=== PATIENT | male | born 1935 | race Caucasian/White ===

== ENCOUNTER → 2016-11-25 | Outpatient (REF) | payer MEDICARE, BC ==
[2016-11-25 12:58] LABS: BASO % 0.5 % (0.0-1.0); EOS # 0.3 K/mm3 (0.0-0.50); EOS % 5.5 % (0.0-3.0); LARGE UNSTAINED CELL # 0.1 K/mm3 (0.0-0.4); LARGE UNSTAINED CELL % 1.9 % (0.0-4.0); LYMPH # 1.1 K/mm3 (1.5-4.5); LYMPH % 17.7 % (24.0-44.0); MEAN CORPUSCULAR HEMOGLOBIN 32.8 pg (27.0-33.0); MEAN CORPUSCULAR HGB CONC 33.8 g/dl (32.0-36.5); MEAN CORPUSCULAR VOLUME 97.1 fl (80.0-96.0); MONO # 0.5 K/mm3 (0.0-0.8); MONO % 8.4 % (0.0-5.0); NEUTROPHILS # 3.6 K/mm3 (1.8-7.7); NEUTROPHILS % 65.9 % (36.0-66.0); PLATELET COUNT, AUTOMATED 151 k/mm3 (150-450); RED CELL DISTRIBUTION WIDTH 12.9 % (11.5-14.5); WHITE BLOOD COUNT 5.4 K/mm3 (4.0-10.0)
[2016-11-25 13:28] LABS: ALBUMIN 3.6 GM/DL (3.2-5.2); ALBUMIN/GLOBULIN RATIO 1.29 (1.00-1.93); BILIRUBIN,TOTAL 0.8 MG/DL (0.2-1.0); CALCIUM LEVEL 8.5 MG/DL (8.8-10.2); CREATININE FOR GFR 1.35 MG/DL (0.70-1.30); GLOMERULAR FILTRATION RATE 54.1 (>35); MAGNESIUM LEVEL 2.2 MG/DL (1.8-2.4); POTASSIUM SERUM 4.6 MEQ/L (3.5-5.1); TOTAL PROTEIN 6.4 GM/DL (6.4-8.2)
== END ==
LOC: M LABDRAW1 11:36
PROVIDERS: ATTEND Family Medicine
DX: E55.9 Vitamin D deficiency, unspecified (principal); E78.5 Hyperlipidemia, unspecified; I10 Essential (primary) hypertension; R73.01 Impaired fasting glucose

== ENCOUNTER → 2016-12-11 | Outpatient (CLI) | payer MEDICARE, BC | LOC: M LAB 13:05 | PROVIDERS: ATTEND Urology | DX: Z85.46 Personal history of malignant neoplasm of prostate (principal); R35.1 Nocturia; N52.31 Erectile dysfunction following radical prostatectomy ==

== ENCOUNTER → 2017-11-24 | Outpatient (REF) | payer MEDICARE, BC ==
[2017-11-24 12:45] LABS: BASO % 0.5 % (0.0-1.0); EOS # 0.3 10^3/uL (0.0-0.50); HEMATOCRIT 44.8 % (42.0-52.0); HEMOGLOBIN 15.4 g/dl (13.5-17.5); IMMATURE GRANULOCYTE % 0.3 % (0-3.0); LYMPH # 1.5 10^3/uL (1.5-4.5); MEAN CORPUSCULAR HEMOGLOBIN 32.1 pg (27.0-33.0); MEAN CORPUSCULAR HGB CONC 34.4 g/dl (32.0-36.5); MEAN CORPUSCULAR VOLUME 93.3 fl (80.0-96.0); MONO # 0.8 10^3/uL (0.0-0.8); MONO % 12.7 % (0.0-5.0); NEUTROPHILS # 3.8 10^3/uL (1.8-7.7); NEUTROPHILS % 58.5 % (36.0-66.0); PLATELET COUNT, AUTOMATED 176 10^3/uL (150-450); RED CELL DISTRIBUTION WIDTH 12.8 % (11.5-14.5); WHITE BLOOD COUNT 6.4 10^3/uL (4.0-10.0)
[2017-11-24 12:50] LABS: HEMATOCRIT 44.8 % (42.0-52.0)
[2017-11-24 13:35] LABS: ALBUMIN 3.8 GM/DL (3.2-5.2); ALBUMIN/GLOBULIN RATIO 1.23 (1.00-1.93); ALKALINE PHOSPHATASE 63 U/L (45-117); ALT/SGPT 26 U/L (12-78); ANION GAP 10 MEQ/L (8-16); AST/SGOT 22 U/L (7-37); BILIRUBIN,TOTAL 0.7 MG/DL (0.2-1.0); BLOOD UREA NITROGEN 20 MG/DL (7-18); CALCIUM LEVEL 8.6 MG/DL (8.8-10.2); CARBON DIOXIDE LEVEL 26 MEQ/L (21-32); CHLORIDE LEVEL 98 MEQ/L (98-107); CHOLESTEROL LEVEL 134 MG/DL (<200); CREATININE FOR GFR 1.34 MG/DL (0.70-1.30); FREE T4 1.03 NG/DL (0.76-1.46); GLOMERULAR FILTRATION RATE 54.5 (>35); GLUCOSE, FASTING 87 MG/DL (70-100); HDL CHOLESTEROL 40 MG/DL (>40); LDL CHOLESTEROL 69.4 MG/DL (<100); NON-HDL-C 94 MG/DL; POTASSIUM SERUM 4.5 MEQ/L (3.5-5.1); SODIUM LEVEL 134 MEQ/L (136-145); TOTAL PROTEIN 6.9 GM/DL (6.4-8.2); TRIGLYCERIDES LEVEL 123 MG/DL (<150)
[2017-11-24 15:24] LABS: APPEARANCE, URINE CLEAR (CLEAR); BACTERIA, URINE AUTO NEGATIVE (NEGATIVE); BILIRUBIN, URINE AUTO NEGATIVE (NEGATIVE); BLOOD, URINE BLOOD NEGATIVE (NEGATIVE); COLOR, URINE YELLOW (YELLOW); GLUCOSE, URINE (UA) AUTO NEGATIVE (NEGATIVE); KETONE, URINE AUTO NEGATIVE (NEGATIVE); LEUKOCYTE ESTERASE, URINE AUTO NEGATIVE (NEGATIVE); NITRITE, URINE AUTO NEGATIVE (NEGATIVE); PROTEIN, URINE AUTO NEGATIVE (NEGATIVE); RBC, URINE AUTO 0 /HPF (0-3); SQUAMOUS EPITHELIAL CELL UR AU 0 /HPF (0-6); UROBILINOGEN, URINE AUTO 0.2 mg/dL (0.0-2.0); WBC, URINE AUTO 0 /HPF (0-3)
[2017-11-24 15:33] LABS: CREATININE, URINE 61.2 MG/DL; MAU/CREAT RATIO 22.8 MCG/MG (0.0-30.0)
[2017-11-24 17:34] LABS: ESTIMATED AVERAGE GLUCOSE 128 MG/DL (60-110); HEMOGLOBIN A1c 6.1 %
[2017-11-25 11:21] LABS: PRETREATED FOLATE FOR RBCFOL 14.2 NG/ML; RBC FOLATE 665.6 NG/ML (280-791)
[2017-11-27 12:24] LABS: ALBUMIN 4.15 GM/DL (3.29-5.55); ALBUMIN % 60.2 % (55.8-66.1); ALPHA-1-GLOBULIN % 4.6 % (2.9-4.9); ALPHA-1-GLOBULINS 0.32 GM/DL (0.17-0.41); ALPHA-2-GLOBULINS 0.75 GM/DL (0.42-0.99); ALPHA-2-GLOBULINS % 10.9 % (7.1-11.8); BETA-1-GLOBULINS 0.48 GM/DL (0.28-0.60); BETA-1-GLOBULINS % 6.9 % (4.7-7.2); BETA-2-GLOBULINS 0.39 GM/DL (0.19-0.55); BETA-2-GLOBULINS % 5.6 % (3.2-6.5); GAMMA GLOBULIN % 11.8 % (11.1-18.8); GAMMA GLOBULINS 0.81 GM/DL (0.65-1.58)
== END ==
LOC: M LABDRWAD 12:15
DX: E78.5 Hyperlipidemia, unspecified (principal); R73.01 Impaired fasting glucose; N18.3 Chronic kidney disease, stage 3 (moderate)
CPT/HCPCS: 84165

== ENCOUNTER → 2017-12-16 | Outpatient (CLI) | payer MEDICARE, BC ==
[2017-12-16 22:03] LABS: PROSTATIC SPECIFIC AG MONITOR < 0.01 NG/ML (< 4.0)
== END ==
LOC: M ADAMS 10:15
DX: Z85.46 Personal history of malignant neoplasm of prostate (principal)
CPT/HCPCS: 84153

== ENCOUNTER 2017-12-18 18:35 | Inpatient (IN) | payer MEDICARE, BC ==
[2017-12-18 21:00] LABS: BASO % 0.5 % (0.0-1.0); EOS # 0.3 10^3/uL (0.0-0.50); EOS % 4.2 % (0.0-3.0); HEMATOCRIT 43.5 % (42.0-52.0); HEMOGLOBIN 14.9 g/dl (13.5-17.5); IMMATURE GRANULOCYTE % 0.7 % (0-3.0); LYMPH # 1.6 10^3/uL (1.5-4.5); LYMPH % 21.2 % (24.0-44.0); MEAN CORPUSCULAR HEMOGLOBIN 31.5 pg (27.0-33.0); MEAN CORPUSCULAR HGB CONC 34.3 g/dl (32.0-36.5); MONO # 0.9 10^3/uL (0.0-0.8); MONO % 12.1 % (0.0-5.0); NEUTROPHILS # 4.5 10^3/uL (1.8-7.7); NEUTROPHILS % 61.3 % (36.0-66.0); PLATELET COUNT, AUTOMATED 189 10^3/uL (150-450); RED BLOOD COUNT 4.73 10^6/uL (4.30-6.10); RED CELL DISTRIBUTION WIDTH 12.2 % (11.5-14.5); WHITE BLOOD COUNT 7.4 10^3/uL (4.0-10.0)
[2017-12-18 21:12] LABS: INR 1.02; PROTHROMBIN TIME 13.5 SECONDS (12.1-14.4)
[2017-12-18 21:13] LABS: PARTIAL THROMBOPLASTIN TIME 26.7 SECONDS (25.4-37.6)
[2017-12-18 22:46] LABS: BLOOD UREA NITROGEN 18 MG/DL (7-18); CREATININE FOR GFR 1.35 MG/DL (0.70-1.30); GLUCOSE, FASTING 99 MG/DL (70-100); POTASSIUM SERUM 4.9 MEQ/L (3.5-5.1); SODIUM LEVEL 131 MEQ/L (136-145)
[2017-12-18 22:47] LABS: ANION GAP 9 MEQ/L (8-16); CALCIUM LEVEL 8.6 MG/DL (8.8-10.2); CARBON DIOXIDE LEVEL 26 MEQ/L (21-32); CHLORIDE LEVEL 96 MEQ/L (98-107); CK-MB VALUE MASS 2.1 NG/ML (<3.6); CPK CREATINE PHOSPHOKINASE 102 U/L (39-308); MB/CK RELATIVE INDEX 2.05 (< OR =4); TROPONIN I 0.02 NG/ML (< 0.10)
[2017-12-19] MEDS: LATANOPROST 0.005% OPHTH SOLN 2.5 ML OD (01:05)
[2017-12-19 01:52] LABS: CHOLESTEROL LEVEL 117 MG/DL (<200); CHOLESTEROL RISK RATIO 3.078 (<5); HDL CHOLESTEROL 38 MG/DL (>40); LDL CHOLESTEROL 58.2 MG/DL (<100); NON-HDL-C 79 MG/DL; TRIGLYCERIDES LEVEL 104 MG/DL (<150)
[2017-12-19 01:57] LABS: ESTIMATED AVERAGE GLUCOSE 151 MG/DL (60-110); HEMOGLOBIN A1c 6.9 %
[2017-12-19] MEDS: NS 750 ML IV (03:04)
[2017-12-19] MEDS: METOPROLOL SUCC (TopROL XL) 50MG **XL** TAB PO ×2 (04:22→22:13)
[2017-12-19] MEDS: HEPARIN SOD (PORCINE) 5000 UNITS/ML VIAL SC ×3 (06:25→22:09)
[2017-12-19] MEDS: ROSUVASTATIN 10 MG TAB (CRESTOR) PO (08:46)
[2017-12-19] MEDS: MULTIVITAMINS/MINERALS THERAP 1 TAB PO (08:46)
[2017-12-19] MEDS: ASPIRIN 81 MG ENTERIC TAB PO (08:46)
[2017-12-19] MEDS: PANTOPRAZOLE 20 MG TAB PO (08:47)
[2017-12-19] MEDS: LOSARTAN 25 MG TAB PO (08:49)
[2017-12-19 10:02] LABS: ANION GAP 7 MEQ/L (8-16); BLOOD UREA NITROGEN 15 MG/DL (7-18); CALCIUM LEVEL 8.5 MG/DL (8.8-10.2); CARBON DIOXIDE LEVEL 28 MEQ/L (21-32); CHLORIDE LEVEL 96 MEQ/L (98-107); CREATININE FOR GFR 1.25 MG/DL (0.70-1.30); GLUCOSE, FASTING 108 MG/DL (70-100); POTASSIUM SERUM 4.7 MEQ/L (3.5-5.1); SODIUM LEVEL 131 MEQ/L (136-145)
[2017-12-19] MEDS: PNEUMOCOCCAL VACCINE 0.5ML SYRINGE(90732) PNEUMOVAX 23 IM (14:20)
[2017-12-19] MEDS: OCUVITE 1 TAB PO (22:09)
[2017-12-20] MEDS ORDERED: GLUCAGON FOR INJ 1 MG VIAL (J1610) SC (04:30)
[2017-12-20] MEDS ORDERED: GLUCOSE 4 GM CHEW TABLET PO (04:30)
[2017-12-20] MEDS ORDERED: DEXTROSE 50% 50 ML SYRINGE IV (04:30)
[2017-12-20] MEDS: HEPARIN SOD (PORCINE) 5000 UNITS/ML VIAL SC ×3 (05:36→21:05)
[2017-12-20 06:32] LABS: HEMATOCRIT 40.8 % (42.0-52.0); HEMOGLOBIN 14.3 g/dl (13.5-17.5); MEAN CORPUSCULAR HEMOGLOBIN 31.4 pg (27.0-33.0); MEAN CORPUSCULAR VOLUME 89.7 fl (80.0-96.0); PLATELET COUNT, AUTOMATED 176 10^3/uL (150-450); RED BLOOD COUNT 4.55 10^6/uL (4.30-6.10); RED CELL DISTRIBUTION WIDTH 12.1 % (11.5-14.5); WHITE BLOOD COUNT 7.5 10^3/uL (4.0-10.0)
[2017-12-20 06:50] LABS: ANION GAP 9 MEQ/L (8-16); BLOOD UREA NITROGEN 20 MG/DL (7-18); CALCIUM LEVEL 8.5 MG/DL (8.8-10.2); CARBON DIOXIDE LEVEL 24 MEQ/L (21-32); CHLORIDE LEVEL 99 MEQ/L (98-107); GLOMERULAR FILTRATION RATE 56.4 (>35); GLUCOSE, FASTING 107 MG/DL (70-100); POTASSIUM SERUM 4.8 MEQ/L (3.5-5.1); SODIUM LEVEL 132 MEQ/L (136-145)
[2017-12-20] MEDS: HumaLOG INSULIN (NovoLOG) PER UNIT SC ×2 (07:30→07:40)
[2017-12-20] MEDS: LOSARTAN 25 MG TAB PO (07:41)
[2017-12-20] MEDS: ASPIRIN 81 MG ENTERIC TAB PO (07:41)
[2017-12-20] MEDS: OMEPRAZOLE 20 MG CAP PO (07:41)
[2017-12-20] MEDS: MULTIVITAMINS/MINERALS THERAP 1 TAB PO (07:41)
[2017-12-20] MEDS: ROSUVASTATIN 10 MG TAB (CRESTOR) PO (07:41)
[2017-12-20] MEDS: CLOPIDOGREL 75 MG TAB PO (07:41)
[2017-12-20] MEDS ORDERED: HumaLOG INSULIN (NovoLOG) PER UNIT SC (21:00)
[2017-12-20] MEDS: METOPROLOL SUCC (TopROL XL) 50MG **XL** TAB PO (21:04)
[2017-12-20] MEDS: OCUVITE 1 TAB PO (21:04)
[2017-12-20] MEDS: LATANOPROST 0.005% OPHTH SOLN 2.5 ML OD (21:05)
[2017-12-21] MEDS: HEPARIN SOD (PORCINE) 5000 UNITS/ML VIAL SC ×2 (05:08→14:22)
[2017-12-21 06:24] LABS: HEMATOCRIT 41.5 % (42.0-52.0); HEMOGLOBIN 14.3 g/dl (13.5-17.5); MEAN CORPUSCULAR HEMOGLOBIN 31.4 pg (27.0-33.0); MEAN CORPUSCULAR HGB CONC 34.5 g/dl (32.0-36.5); PLATELET COUNT, AUTOMATED 174 10^3/uL (150-450); RED BLOOD COUNT 4.56 10^6/uL (4.30-6.10); RED CELL DISTRIBUTION WIDTH 12.3 % (11.5-14.5); WHITE BLOOD COUNT 7.4 10^3/uL (4.0-10.0)
[2017-12-21 06:43] LABS: ANION GAP 9 MEQ/L (8-16); BLOOD UREA NITROGEN 20 MG/DL (7-18); CALCIUM LEVEL 8.7 MG/DL (8.8-10.2); CARBON DIOXIDE LEVEL 24 MEQ/L (21-32); CHLORIDE LEVEL 100 MEQ/L (98-107); CREATININE FOR GFR 1.31 MG/DL (0.70-1.30); GLOMERULAR FILTRATION RATE 55.9 (>35); GLUCOSE, FASTING 98 MG/DL (70-100); POTASSIUM SERUM 4.5 MEQ/L (3.5-5.1); SODIUM LEVEL 133 MEQ/L (136-145)
[2017-12-21] MEDS: CLOPIDOGREL 75 MG TAB PO (08:29)
[2017-12-21] MEDS: MULTIVITAMINS/MINERALS THERAP 1 TAB PO (08:29)
[2017-12-21] MEDS: ROSUVASTATIN 10 MG TAB (CRESTOR) PO (08:29)
[2017-12-21] MEDS: OMEPRAZOLE 20 MG CAP PO (08:29)
[2017-12-21] MEDS: LOSARTAN 25 MG TAB PO (08:30)
[2017-12-21] MEDS: ASPIRIN 81 MG ENTERIC TAB PO (08:30)
[2017-12-21] MEDS: ACETAMINOPHEN TAB 650MG DOSE (2X325MG) PO (08:30)
[2017-12-21] MEDS ORDERED: FIORICET TAB PO (11:00)
[2017-12-21 11:48] LABS: C REACTIVE PROTEIN QUANTITATIV 0.58 MG/DL (0.00-0.30)
[2017-12-21 12:15] LABS: ERYTHROCYTE SEDIMENTATION RATE 5 mm/hr (0-20)
[2017-12-21] MEDS ORDERED: NORTRIPTYLINE 10 MG CAP PO (21:00)
== END 2017-12-21 18:09 | disposition home or self-care (01) | DRG 66 ==
LOC: M ED INP 12-19 01:51 → M ED 18:35 → M MSPAV 12-19 11:28
DX: I63.9 Cerebral infarction, unspecified (principal); E78.5 Hyperlipidemia, unspecified; I25.10 Atherosclerotic heart disease of native coronary artery without angina pectoris; Z95.1 Presence of aortocoronary bypass graft; N18.9 Chronic kidney disease, unspecified; I12.9 Hypertensive chronic kidney disease with stage 1 through stage 4 chronic kidney disease, or unspecified chronic kidney disease; Z79.899 Other long term (current) drug therapy; Z79.82 Long term (current) use of aspirin; Z87.891 Personal history of nicotine dependence; H40.9 Unspecified glaucoma; K21.9 Gastro-esophageal reflux disease without esophagitis; E11.9 Type 2 diabetes mellitus without complications; E66.9 Obesity, unspecified

== ENCOUNTER → 2018-01-26 | Outpatient (REF) | payer MEDICARE, BC ==
[2018-01-26 13:09] LABS: BASO % 0.6 % (0.0-1.0); EOS # 0.3 10^3/uL (0.0-0.50); EOS % 4.9 % (0.0-3.0); HEMATOCRIT 46.4 % (42.0-52.0); HEMOGLOBIN 15.6 g/dl (13.5-17.5); IMMATURE GRANULOCYTE % 0.4 % (0-3.0); LYMPH # 1.3 10^3/uL (1.5-4.5); LYMPH % 18.1 % (24.0-44.0); MEAN CORPUSCULAR HEMOGLOBIN 32.1 pg (27.0-33.0); MEAN CORPUSCULAR HGB CONC 33.6 g/dl (32.0-36.5); MEAN CORPUSCULAR VOLUME 95.5 fl (80.0-96.0); MONO # 0.9 10^3/uL (0.0-0.8); MONO % 12.3 % (0.0-5.0); NEUTROPHILS # 4.4 10^3/uL (1.8-7.7); NEUTROPHILS % 63.7 % (36.0-66.0); PLATELET COUNT, AUTOMATED 174 10^3/uL (150-450); RED BLOOD COUNT 4.86 10^6/uL (4.30-6.10); RED CELL DISTRIBUTION WIDTH 12.9 % (11.5-14.5); RETIC HEMOGLOBIN EQUIVALENT 37.8 pg (24-36); RETICULOCYTE # 80.2 10^9/L (17-77); RETICULOCYTE % 1.7 % (0.5-1.5); WHITE BLOOD COUNT 6.9 10^3/uL (4.0-10.0)
[2018-01-26 13:15] LABS: ALBUMIN 3.7 GM/DL (3.2-5.2); ALBUMIN/GLOBULIN RATIO 1.28 (1.00-1.93); ALKALINE PHOSPHATASE 62 U/L (45-117); ALT/SGPT 30 U/L (12-78); ANION GAP 5 MEQ/L (8-16); AST/SGOT 21 U/L (7-37); BILIRUBIN,TOTAL 0.8 MG/DL (0.2-1.0); BLOOD UREA NITROGEN 20 MG/DL (7-18); C REACTIVE PROTEIN QUANTITATIV < 0.30 MG/DL (0.00-0.30); CALCIUM LEVEL 9.3 MG/DL (8.8-10.2); CARBON DIOXIDE LEVEL 30 MEQ/L (21-32); CHLORIDE LEVEL 101 MEQ/L (98-107); CHOLESTEROL LEVEL 90 MG/DL (<200); CPK CREATINE PHOSPHOKINASE 130 U/L (39-308); CREATININE FOR GFR 1.48 MG/DL (0.70-1.30); GLOMERULAR FILTRATION RATE 48.6 (>35); GLUCOSE, FASTING 111 MG/DL (70-100); HDL CHOLESTEROL 40 MG/DL (>40); LDL CHOLESTEROL 32.4 MG/DL (<100); NON-HDL-C 50 MG/DL; SODIUM LEVEL 136 MEQ/L (136-145); TOTAL PROTEIN 6.6 GM/DL (6.4-8.2); TRIGLYCERIDES LEVEL 88 MG/DL (<150)
[2018-01-26 13:25] LABS: POTASSIUM SERUM 5.3 MEQ/L (3.5-5.1)
[2018-01-27 15:19] LABS: INSULIN LEVEL 20.4 uIU/mL (2.6-24.9)
== END ==
LOC: M SFHCADAM 07:47
DX: N18.3 Chronic kidney disease, stage 3 (moderate) (principal); E78.5 Hyperlipidemia, unspecified; R73.01 Impaired fasting glucose; I12.9 Hypertensive chronic kidney disease with stage 1 through stage 4 chronic kidney disease, or unspecified chronic kidney disease
CPT/HCPCS: 82550

== ENCOUNTER → 2018-11-17 | Outpatient (REF) | payer MEDICARE, BC ==
[~2018-11-17] MED LIST: ASPI81TA26 PO; ASPI81TAEC PO; CLOP75TA2 PO; CRES10TA PO; FISH1000 PO; FISH120012 PO; FLAX10008 PO; FLAX1200 PO; LATA0.0013; LATA0.0013 OD; LOSA25TA14 PO; METO1TAB7 PO; MULTCAP PO; OCUVTAB PO; OMEP20CA3 PO; PANT20TA2 PO; SIMV40TA2 PO; TURM500C PO; TURM500C3 PO; VITMTA PO; ZOCO40TA PO
[2018-11-17 13:50] LABS: BASO % 0.3 % (0.0-1.0); EOS # 0.2 10^3/uL (0.0-0.50); EOS % 1.5 % (0.0-3.0); HEMATOCRIT 46.2 % (42.0-52.0); HEMOGLOBIN 15.7 g/dl (13.5-17.5); LYMPH # 1.2 10^3/uL (1.5-4.5); LYMPH % 11.3 % (24.0-44.0); MEAN CORPUSCULAR HEMOGLOBIN 31.5 pg (27.0-33.0); MEAN CORPUSCULAR VOLUME 92.6 fl (80.0-96.0); MONO # 1.1 10^3/uL (0.0-0.8); MONO % 10.3 % (0.0-5.0); NEUTROPHILS # 8.3 10^3/uL (1.8-7.7); NEUTROPHILS % 76.1 % (36.0-66.0); PLATELET COUNT, AUTOMATED 223 10^3/uL (150-450); RED BLOOD COUNT 4.99 10^6/uL (4.30-6.10); WHITE BLOOD COUNT 10.9 10^3/uL (4.0-10.0)
[2018-11-17 14:13] LABS: ALBUMIN 3.3 GM/DL (3.2-5.2); C REACTIVE PROTEIN QUANTITATIV 11.8 MG/DL (0.00-0.30); CREATININE FOR GFR 1.42 MG/DL (0.70-1.30); GLOMERULAR FILTRATION RATE 50.8 (>35); TOTAL PROTEIN 6.9 GM/DL (6.4-8.2)
== END ==
LOC: M SFHCPLAZ 12:56
PROVIDERS: ATTEND Family Medicine
DX: I10 Essential (primary) hypertension (principal); R10.9 Unspecified abdominal pain
CPT/HCPCS: 36415; 80053; 83605; 83690; 85025; 86140; G0463

== ENCOUNTER → 2018-11-23 | Outpatient (CLI) | payer MEDICARE, BC ==
[~2018-11-23] MED LIST changes: +GASTROGRAFIN SOLUTION 30ML (Q9963) As Ordered ONE
--- NOTE | 2018-11-23 19:09 | REP ---
CT of the abdomen and pelvis without IV but with oral contrast for left side abdominal pain: There are no comparison CT studies. Within the visualized lower lung lopez. There is a 4.3 cm mass-like density in the right lower lobe and a small right pleural effusion. There is a 2.4 cm cyst in the left lobe of the liver. The unenhanced hepatic parenchyma is otherwise homogeneous. There are small gallbladder calculi. The gallbladder is otherwise unremarkable. There is no biliary duct dilatation. The pancreas and spleen are normal size and unremarkable. The adrenals are unremarkable. The unenhanced kidneys are unremarkable. There is an abdominal aortic aneurysm measuring up to 3.0 cm in diameter. There is no periaortic hematoma. There are numerous diverticuli in the descending colon and sigmoid colon. There is pericolonic fat stranding at the junction of the descending colon and sigmoid colon compatible with diverticulitis. There is no abscess. There is no pneumoperitoneum. There is no free fluid. Pelvis: The the patient has had prostate surgery. There are surgical clips in the pelvis bilaterally. The bladder is unremarkable. There is a lucent lesion in the L5 vertebral body has eroded through the superior endplate. There is a blastic appearance of the vertebral body adjacent to the lucency. There is a lucency superiorly in the T11 vertebral body adjacent to the superior endplate. There is lucent lesions may represent metastases. There is advanced degenerative disc disease at L2-3, L3-4 and L4-5 characterized by disc vacuum phenomenon. There is degenerative disc disease from T11 - L2 with large anterior bridging osteophytes. There are blastic lesions in the posterior elements of L3 - 04-05. Impression: Diverticulosis. Focal diverticulitis at the junction of the descending colon and sigmoid colon without abscess or pneumoperitoneum. Prostate surgery. The lucent metastases in the T11 and L5 vertebral bodies. Blastic metastases in the posterior elements of L3 - 04-05. Surgical clips in the pelvis inferiorly. Abdominal aortic aneurysm. The Electronically Signed by Natan Forbes MD 11/23/2018 07:01 P
== END ==
LOC: M RAD 15:12
PROVIDERS: ATTEND Family Medicine
DX: R10.9 Unspecified abdominal pain (principal); C79.51 Secondary malignant neoplasm of bone; K57.30 Diverticulosis of large intestine without perforation or abscess without bleeding; K57.32 Diverticulitis of large intestine without perforation or abscess without bleeding; I71.4 Abdominal aortic aneurysm, without rupture; J98.4 Other disorders of lung
CPT/HCPCS: 74176; Q9963

== ENCOUNTER → 2018-11-24 | Outpatient (REF) | payer MEDICARE, BC ==
[~2018-11-24] MED LIST changes: -GASTROGRAFIN SOLUTION 30ML (Q9963) As Ordered ONE
[2018-11-24 16:34] LABS: ALBUMIN 3.2 GM/DL (3.2-5.2); ALT/SGPT 30 U/L (12-78); BILIRUBIN,TOTAL 0.4 MG/DL (0.2-1.0); BLOOD UREA NITROGEN 22 MG/DL (7-18); CALCIUM LEVEL 8.8 MG/DL (8.8-10.2); CARBON DIOXIDE LEVEL 27 MEQ/L (21-32); CHLORIDE LEVEL 97 MEQ/L (98-107); CREATININE FOR GFR 1.44 MG/DL (0.70-1.30); GLUCOSE, FASTING 132 MG/DL (70-100); POTASSIUM SERUM 4.8 MEQ/L (3.5-5.1); PROSTATIC SPECIFIC AG MONITOR < 0.01 NG/ML (< 4.00); SODIUM LEVEL 130 MEQ/L (136-145); TOTAL PROTEIN 6.4 GM/DL (6.4-8.2)
== END ==
LOC: M SFHCPLAZ 14:21
PROVIDERS: ATTEND Nurse Practitioner Family
DX: R91.8 Other nonspecific abnormal finding of lung field (principal); C61 Malignant neoplasm of prostate

== ENCOUNTER → 2018-11-25 | Outpatient (CLI) | payer MEDICARE, BC ==
[~2018-11-25] MED LIST changes: +ISOVUE-370 76% 100ML VIAL (Q9967) As Ordered ONE
--- NOTE | 2018-11-25 09:55 | REP ---
CT BRAIN WITHOUT CONTRAST: HISTORY: Right lower lobe lung mass. Bone metastasis. Comparison MRI study December 18, 2017. CT FINDINGS: Digital preliminary expert witness radiograph is unremarkable. Bone window settings show an intact bony calvarium. There is no evidence of calvarial metastatic lesion. There is fairly heavy vascular calcification in the distal vertebral and distal carotid arteries bilaterally. The visualized paranasal sinuses are clear. No intraorbital abnormality is seen. There is moderate diffuse cerebral atrophy. There is an old right temporal occipital lobe infarct. This was acute at the time of the MRI study from December 18. There is no evidence of intracranial hemorrhage, mass, extra-axial fluid collection, or midline shift. IMPRESSION: Diffuse moderate atrophy. Vascular calcification. 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 No acute intracranial abnormality. Electronically Signed by New Moreno MD 11/25/2018 11:12 A
--- NOTE | 2018-11-25 09:58 | REP ---
SOFT TISSUE CT OF THE NECK WITH CONTRAST: HISTORY: Right lower lobe mass. CT CONTRAST DOSE: 100 mL of intravenous Isovue 370. SOFT TISSUE NECK CT FINDINGS: The parotid glands are normal and symmetric. The left submandibular gland has a normal appearance. The right submandibular gland is either absent or very atrophic. There is no evidence of cervical adenopathy in the suprahyoid or infrahyoid neck. Extensive vascular calcification is seen in the carotids. Tonsillar and peritonsillar soft tissues are unremarkable. Epiglottis and laryngeal and subglottic airway appear intact. The lung apices are unremarkable. No bony destructive lesion is appreciated. There are degenerative spondylosis changes in the cervical spine. IMPRESSION: No mass or adenopathy seen. Degenerative spondylosis changes in the cervical spine. Asymmetry of the submandibular glands with atrophy or absence on the right. Electronically Signed by New Moreno MD 11/25/2018 11:12 A
--- NOTE | 2018-11-25 10:20 | REP ---
CT CHEST WITH IV CONTRAST: TECHNIQUE: Axial contrast enhanced images from the thoracic inlet to the upper abdomen using 100 mL Isovue 370 intravenous contrast material with multiplanar reformations. There is a rounded mass-like consolidative opacity in the right lower lobe along the diaphragm 4.4 cm in diameter. Tiny calcified granuloma is seen in the left lower lobe. There are no other suspicious nodular opacities identified. There is a small right pleural effusion. There is no evidence of mediastinal, hilar or chest wall lymphadenopathy. There is mild cardiomegaly. There is calcification of the thoracic aorta with mild dilatation of the ascending thoracic aorta 4.5 cm. There is no pericardial effusion. There is a small hiatal hernia. There is a cyst in the left lobe of the liver which measures 2.5 cm in diameter. There is no adrenal nodule. Small gallstones are seen in the gallbladder. The visualized colon demonstrates diffuse diverticulosis. There are degenerative changes of the spine. There is mild compression deformity of the T6 of indeterminate age. T11 also demonstrates mild depression of the superior endplate with adjacent ill-defined lucency in the vertebral body. I cannot exclude an underlying metastatic lesion. IMPRESSION: Right lower lobe mass density 4.4 cm in diameter. Small right pleural effusion. No adenopathy in the chest. Mild compression of T6 of indeterminate age. Mild compression of T11 with depression of the superior endplate and adjacent ill-defined lucency in the superior vertebral body. Underlying metastatic lesion could not be excluded. Electronically Signed by Natan Hoskins MD 11/25/2018 04:40 P
== END ==
LOC: M RAD 08:42
PROVIDERS: ATTEND Nurse Practitioner Family
DX: C79.51 Secondary malignant neoplasm of bone (principal); R91.8 Other nonspecific abnormal finding of lung field; J90 Pleural effusion, not elsewhere classified; M47.892 Other spondylosis, cervical region
CPT/HCPCS: 70470; 70491; 71260; Q9967

== ENCOUNTER → 2018-11-26 | Outpatient (REF) | payer MEDICARE, BC ==
[~2018-11-26] MED LIST changes: -ISOVUE-370 76% 100ML VIAL (Q9967) As Ordered ONE; +OMEP1CAP73 PO; -OMEP20CA3 PO; -SIMV40TA2 PO; +SIMV40TA20 PO
[2018-11-26 19:23] LABS: ALBUMIN 3.3 GM/DL (3.2-5.2); BLOOD UREA NITROGEN 21 MG/DL (7-18); CARBON DIOXIDE LEVEL 27 MEQ/L (21-32); CHLORIDE LEVEL 98 MEQ/L (98-107); CREATININE FOR GFR 1.34 MG/DL (0.70-1.30); GLOMERULAR FILTRATION RATE 54.3 (>35); GLUCOSE, FASTING 156 MG/DL (70-100); PHOSPHORUS LEVEL 3.7 MG/DL (2.5-4.9); SODIUM LEVEL 134 MEQ/L (136-145); TOTAL PROTEIN 6.6 GM/DL (6.4-8.2)
[2018-11-26 19:36] LABS: INR 1.06; PROTHROMBIN TIME 13.5 SECONDS (11.8-14.0)
[2018-11-26 19:47] LABS: OSMOLALITY SERUM 284 MOSM/KG (280-301)
[2018-12-01 14:39] LABS: ALBUMIN 3.72 GM/DL (3.29-5.55); ALBUMIN % 56.4 % (55.8-66.1); ALPHA-1-GLOBULIN % 5.6 % (2.9-4.9); ALPHA-1-GLOBULINS 0.37 GM/DL (0.17-0.41); ALPHA-2-GLOBULINS 0.92 GM/DL (0.42-0.99); ALPHA-2-GLOBULINS % 13.9 % (7.1-11.8); BETA-1-GLOBULINS 0.43 GM/DL (0.28-0.60); BETA-1-GLOBULINS % 6.5 % (4.7-7.2); BETA-2-GLOBULINS 0.37 GM/DL (0.19-0.55); BETA-2-GLOBULINS % 5.6 % (3.2-6.5); GAMMA GLOBULINS 0.79 GM/DL (0.65-1.58)
== END ==
LOC: M SFHCPLAZ 13:35 → M SFHCADAM 13:39
PROVIDERS: ATTEND Family Medicine
DX: C79.9 Secondary malignant neoplasm of unspecified site (principal); I63.9 Cerebral infarction, unspecified
CPT/HCPCS: 80069; 83930; 83935; 84165; 85610; 85730; 86335; G0463

== ENCOUNTER → 2018-12-08 | Outpatient (CLI) | payer MEDICARE, BC ==
[~2018-12-08] MED LIST changes: +LIDOCAINE 1% MDV 20ML VIAL As Ordered ONE; -OMEP1CAP73 PO; +OMEP20CA4 PO; +SIMV40TA2 PO; -SIMV40TA20 PO
--- NOTE | 2018-12-08 14:31 | REP ---
CHEST, SINGLE VIEW: Single view of the chest is performed status post right lung biopsy. There is no pneumothorax. There are bibasilar atelectatic changes. Multiple sternal wires and mediastinal clips are present. IMPRESSION: No pneumothorax status post right lung biopsy. Electronically Signed by Natan Hoskins MD 12/08/2018 03:59 P
--- NOTE | 2018-12-08 16:06 | REP ---
CT-guided right lower lobe lung biopsy The procedure is performed by JANEE Moreira, under the direct supervision of Dr. Hoskins. The patient has a history of a rounded mass-like consolidative opacity in the right lower lobe along the diaphragm measuring 4.4 cm in diameter on a CT chest with contrast dated 11/25/2018. The risks and benefits of the procedure were explained to the patient and informed consent was obtained both orally and written. Directly prior to the start of the procedure, a formal timeout was done in the exam room. The right lower lobe lung nodule was localized using CT guidance. Skin was prepped and draped in the usual sterile fashion. 15 ml of 1% lidocaine was used as a local anesthetic. Using CT guidance a 19/20 gauge coaxial needle biopsy system was inserted and advanced into the nodule. 5 core biopsy samples were obtained and sent to the lab. CT images obtained directly after the biopsy show no evidence of pneumothorax. After the appropriate amount of monitored convalescence the patient was discharged from the department. Reviewed by JANEE Abel 12/08/2018 02:40 P Electronically Signed by Natan Hoskins MD 12/08/2018 03:58 P
== END ==
LOC: M RADPRO 08:53
PROVIDERS: ATTEND Family Medicine
DX: J98.4 Other disorders of lung (principal); R91.8 Other nonspecific abnormal finding of lung field

== ENCOUNTER → 2018-12-16 | Outpatient (REF) | payer MEDICARE, BC ==
[~2018-12-16] MED LIST changes: -LIDOCAINE 1% MDV 20ML VIAL As Ordered ONE
== END ==
LOC: M LABDRWAD 12:07
PROVIDERS: ATTEND Urology
DX: Z85.46 Personal history of malignant neoplasm of prostate (principal)

== ENCOUNTER → 2018-12-21 | Outpatient (CLI) | payer MEDICARE, BC ==
[~2018-12-21] MED LIST changes: +OMEP1CAP73 PO; -OMEP20CA4 PO; -SIMV40TA2 PO; +SIMV40TA20 PO
--- NOTE | 2018-12-21 11:55 | REP ---
WHOLE BODY RADIONUCLIDE BONE SCAN: HISTORY: Metastatic cancer. The patient has history of prostate malignancy recently elevated PSA levels. TECHNIQUE: 22.0 mCi of technetium 99m MDP is injected and standard whole body bone scan imaging was acquired. SCINTIGRAPHIC FINDINGS: There is a normal distribution of skeletal tracer with uptake in bilateral kidneys and in the urinary bladder. Minimal degenerative uptake is seen in the cervical and lumbar spine. There is minimal arthritic uptake in the medial compartment of each knee. There is no evidence to suggest skeletal metastatic disease. IMPRESSION: Negative whole body radionuclide bone scan. Electronically Signed by New Moreno MD 12/21/2018 12:04 P
== END ==
LOC: M RAD 07:38
PROVIDERS: ATTEND Family Medicine
DX: C79.9 Secondary malignant neoplasm of unspecified site (principal)
CPT/HCPCS: 78306; A9503

== ENCOUNTER → 2019-01-05 | Outpatient (REF) | payer MEDICARE, BC ==
[~2019-01-05] MED LIST changes: -OMEP1CAP73 PO; +OMEP20CA4 PO; +SIMV40TA2 PO; -SIMV40TA20 PO
[2019-01-05 13:14] LABS: ALBUMIN 3.5 GM/DL (3.2-5.2); CALCIUM LEVEL 9.5 MG/DL (8.8-10.2); CREATININE FOR GFR 1.4 MG/DL (0.70-1.30); GLOMERULAR FILTRATION RATE 51.7 (>35); PHOSPHORUS LEVEL 3.2 MG/DL (2.5-4.9); POTASSIUM SERUM 4.8 MEQ/L (3.5-5.1)
== END ==
LOC: M SFHCADAM 09:08
PROVIDERS: ATTEND Family Medicine
DX: I25.10 Atherosclerotic heart disease of native coronary artery without angina pectoris (principal)

== ENCOUNTER → 2019-01-06 | Outpatient (CLI) | payer MEDICARE, BC ==
[~2019-01-06] MED LIST changes: +PROHANCE 279.3MG/ML 5ML VIAL (A9576) As Ordered ONE
--- NOTE | 2019-01-06 12:11 | REP ---
MRI CERVICAL SPINE WITHOUT AND WITH CONTRAST: HISTORY: Abnormal uptake in the cervical spine on PET scan. Comparison PET/CT study December 30, 2018. History of prostate carcinoma. TECHNIQUE: Sagittal and axial T1- and T2-weighted scans are acquired in the usual fashion with and without fat saturation. Sequences include spin echo, turbo spin echo, and STIR imaging sequences. The gadolinium enhancement dose is 10 ml of intravenous ProHance. Half dose protocol. MRI FINDINGS: There is straightening of the normal cervical lordosis. Cortical and medullary bone signal intensity are normal. There is a small hemangioma in the T2 vertebral body. The cervical cord is normal in coarse, caliber and signal intensity on T1- and T2-weighted scans. No intraspinal mass or intramedullary mass lesion is seen. No abnormal contrast enhancement is observed. There is mild degenerative narrowing of the C5-6 and C6-7 disc spaces. There is no evidence of focal disc protrusion or spinal stenosis. There are facet osteoarthritic changes. Postcontrast images show no suspicious gadolinium enhancement. IMPRESSION: No acute abnormality. There is no evidence of intraspinal or intramedullary neoplasm. No evidence of skeletal metastatic disease is seen. Small hemangioma T2. Electronically Signed by New Moreno MD 01/06/2019 01:52 P
== END ==
LOC: M RAD 09:28
PROVIDERS: ATTEND Family Medicine
DX: R94.02 Abnormal brain scan (principal)
CPT/HCPCS: 72156; A9576

== ENCOUNTER 2020-12-29 05:11 | Inpatient (IN) | payer MEDICARE, BC ==
[~2020-12-29] VITALS: Ht 177.8 cm; Wt 98.6 kg
[~2020-12-29 05:11] MED LIST changes: +ASPI-569 PO; -ASPI81TAEC PO; +OMEP1CAP73 PO; -OMEP20CA4 PO; -PANT20TA2 PO; +PANT20TA6 PO; -PROHANCE 279.3MG/ML 5ML VIAL (A9576) As Ordered ONE; -SIMV40TA2 PO; +SIMV40TA20 PO
[2020-12-29] MEDS ORDERED: FURO20TA2 PO (05:24)
[2020-12-29 07:00] LABS: BASO % 0.5 % (0.0-1.0); EOS # 0.2 10^3/uL (0.0-0.5); EOS % 2.8 % (0.0-3.0); HEMATOCRIT 38.6 % (42.0-52.0); HEMOGLOBIN 12.6 g/dl (13.5-17.5); LYMPH # 0.9 10^3/uL (1.5-5.0); LYMPH % 14.2 % (24.0-44.0); MEAN CORPUSCULAR HGB CONC 32.6 g/dl (32.0-36.5); MEAN CORPUSCULAR VOLUME 88.9 fl (80.0-96.0); MONO # 0.8 10^3/uL (0.0-0.8); MONO % 12.6 % (2.0-8.0); NEUTROPHILS # 4.4 10^3/uL (1.5-8.5); NEUTROPHILS % 69.6 % (36.0-66.0); PLATELET COUNT, AUTOMATED 152 10^3/uL (150-450); RED BLOOD COUNT 4.34 10^6/uL (4.30-6.10); WHITE BLOOD COUNT 6.3 10^3/uL (4.0-10.0)
[2020-12-29] MEDS ORDERED: FUROSEMIDE 40MG/4ML VIAL (J1940) IV ONE (07:00)
[2020-12-29 07:32] LABS: ALBUMIN 3.3 GM/DL (3.2-5.2); ALT/SGPT 26 U/L (12-78); BILIRUBIN,DIRECT 0.8 MG/DL (0.0-0.2); BILIRUBIN,TOTAL 1.5 MG/DL (0.2-1.0); BLOOD UREA NITROGEN 24 MG/DL (7-18); CALCIUM LEVEL 9.1 MG/DL (8.8-10.2); CARBON DIOXIDE LEVEL 25 MEQ/L (21-32); CHLORIDE LEVEL 99 MEQ/L (98-107); CK-MB VALUE MASS 1.4 NG/ML (<3.6); CPK CREATINE PHOSPHOKINASE 56 U/L (39-308); CREATININE FOR GFR 1.35 MG/DL (0.70-1.30); GLOMERULAR FILTRATION RATE 53.6 (>35); GLUCOSE, FASTING 96 MG/DL (70-100); NT-PRO BNP 5734 PG/ML (<450); POTASSIUM SERUM 4.7 MEQ/L (3.5-5.1); SODIUM LEVEL 133 MEQ/L (136-145); TOTAL PROTEIN 6.5 GM/DL (6.4-8.2); TROPONIN I < 0.02 NG/ML (< 0.10)
[2020-12-29] MEDS ORDERED: CLOPIDOGREL 75 MG TAB PO SCH (09:00)
--- NOTE | 2020-12-29 09:10 | REPVR ---
PROCEDURE INFORMATION: Exam: XR Chest Exam date and time: 12/29/2020 6:55 AM Age: 85 years old Clinical indication: Cough; Additional info: Dyspnea/cough TECHNIQUE: Imaging protocol: XR of the chest. Views: 1 view. COMPARISON: CR POST BX CHEST 12/08/2018 1:43 PM FINDINGS: Lungs: Interstitial prominence. Asymmetric right basilar airspace/pleural disease obscuring the lateral right hemidiaphragm. Heart/Mediastinum: Cardiomegaly. Bones/joints: Median sternotomy. Osteopenia and degenerative change. IMPRESSION: Asymmetric right basilar airspace/pleural disease obscuring the lateral right hemidiaphragm. Electronically signed by: Ramsey Castillo On 12/29/2020 09:09:40 AM
[2020-12-29] MEDS ORDERED: D31000TA2 PO (11:12)
[2020-12-29] MEDS ORDERED: LOSA25TA14 PO (11:12)
[2020-12-29] MEDS ORDERED: PLAV1TAB2 PO (11:12)
[2020-12-29] MEDS ORDERED: XALA0.007 OD (11:12)
[2020-12-29] MEDS ORDERED: BLACK SEED OIL PO (11:12)
[2020-12-29] MEDS ORDERED: MOM 30ML SUSPENSION UDC PO PRN (11:30)
[2020-12-29] MEDS ORDERED: ACETAMINOPHEN TAB 650MG DOSE (2X325MG) PO PRN (11:30)
[2020-12-29] MEDS ORDERED: MAALOX 30 ML SUSP *UDC PO PRN (11:30)
[2020-12-29] MEDS: LOSARTAN 25 MG TAB PO SCH (13:11)
[2020-12-29] MEDS: MULTIVITAMINS/MINERALS THERAP 1 TAB PO SCH (13:11)
--- NOTE | 2020-12-29 13:29 | HPEPDOC ---
[facility] Medical History & Physical Date of Admission Dec 29, 2020 Date of Service: Dec 29, 2020 Primary Care Physician: Cory Hernandez M.D. Attending Physician: DALLIN CASTANEDA DO History and Physical CHIEF COMPLAINT: Shortness of breath on exertion HISTORY OF PRESENT ILLNESS: Patient is an 85-year-old male who presents today with a 2 to 3-week history of worsening shortness of breath on exertion. Patient states that over the past 2 to 3 weeks he has noticed worsening shor tness of breath especially when exert himself. He is not short of breath at rest. Patient states he used to be able to walk a few 1000 feet without any difficulty but has noticed he is only able to walk a few 100 feet now without having to stop to catch his breath. Patient states that he has been noticing he is unable to sleep the past few days as he is unable to lay flat. Patient usually sleeps with a few pillows but states over the past few days he has been having more difficulty catching his breath. Patient does occasionally wake up short of breath and over the past 2 days has been unable to wear his CPAP machine because of his shortness of breath. Patient denies any chest pain with his shortness of breath on exertion. Patient does have increased leg swelling. Patient states that he was given Lasix but he does not take it as consistently as he probably should. PAST MEDICAL HISTORY: 1. Congestive heart failure with unknown ejection fraction, last echo performed a few weeks ago in [place]. 2. Coronary artery disease. 3. Hypertension. 4. Chronic kidney disease 5. History of stroke PAST SURGICAL HISTORY: 1. CABG. 2. Bovine valve replacement. 3. Prostatectomy. 4. Hernia repairs SOCIAL HISTORY: Currently lives with his . Used to smoke about 35 years ago. Denies any alcohol or illicit drug use. 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 REVIEW OF SYSTEMS: General: Patient denies fevers HEENT: Patient denies headaches Cardiovascular: Patient denies chest pain Respiratory: Patient reports shortness of breath as above patient does report a cough but denies productive cough GI: Patient denies abdominal pain, nausea, vomiting, diarrhea : Patient denies increased frequency or pain with urination Extremities: Patient reports swelling of bilateral lower extremities s Neurological: Patient denies numbness or tingling in legs Skin: Patient denies any new rashes or lesions. Hematologic: Patient denies any easy bruising. Lymphatic: Patient denies any lumps lumps or bumps in neck, axilla, or groin HOME MEDICATIONS: Please see below. PHYSICAL EXAMINATION: VITAL SIGNS: Temperature 96.1, pulse 55, respiratory rate 18, blood pressure 162/77, pulse oximetry 99% on room air. General: Alert and oriented male patient who was resting comfortably in bed when I walked in the room. Patient not appear to be in any acute distress. HEENT: Normocephalic, atraumatic, moist mucous membranes. Neck: No lymphadenopathy or thyromegaly Cardiac: Regular rate and rhythm, no murmurs, normal S1, normal S2 Pulm: Crackles in the bases with dullness to percussion mostly on the right base. Clear to auscultation with tympany to percussion in the upper lung lopez bilaterally Abd: Nondistended, nontender to palpation, normal bowel sounds Ext: 1+ pitting edema to the level of the mid ramos Neuro: Patient was able to move all 4 extremities on command. Patient reported sensation to light touch in all 4 extremities Skin: Skin of the head, neck, abdomen, back, lower and upper extremities was exa mined no show any rash or suspicious lesion. LABORATORY DATA: See below. IMAGING: Chest x-ray performed on 12/29/2020 was reported to show asymmetric right basilar airspace/pleural disease obscuring the right lateral hemidiaphragm. MICROBIOLOGY: Please see below. ASSESSMENT: Patient is an 85-year-old male who presented to the hospital today with a 2 to 3-week history of worsening shortness of breath.. . PLAN: 1. Acute exacerbation of congestive heart failure with unknown ejection fraction. Patient recently had echocardiogram performed in [place] and the patient's says she has a copy of the report. We will try to track down the copy the report should know what this is heart failure produced or preserved ejection fraction. At this time, patient diuresed well with 40 mg of IV Lasix. We will give additional 40 mg of IV Lasix as the patient does appear to be overloaded. We will continue with diuresis to the patient's symptoms have resolved. Strict I's and O's. 2000 cc fluid restriction. 2 g sodium diet. We will continue to monitor the patient. 2. Shortness of breath on exertion. This is most likely due to the acute exacerbation of congestive heart failure. Continue with treatment as above. 3. Hypertension. Continue the patient's medications. 4. Coronary artery disease status post CABG. Continue with the patient's current medications. 5. Chronic kidney disease. We will continue to monitor the patient's creatinine as we diurese the patient. 6. DVT prophylaxis: Lovenox. 7. CODE STATUS: Patient would like to be a DO NOT RESUSCITATE/DO NOT INTUBATE. Patient believes he has filled out the paperwork in the past. When I discussed this with the patient, he understands that if his heart were to stop beating and he was to stop breathing and we did not perform CPR that he would naturally. This is the patient's wish. Patient also not like to be hooked up to a ventilator. Patient was made DO NOT RESUSCITATE/DO NOT INTUBATE. Disposition: Patient will be admitted to the medical surgical floor with telemetry. I expect the patient to be hospitalized for 24 to 48 hours. Vital Signs Vital Signs Date Time Temp Pulse Resp B/P (MAP) Pulse Ox O2 Delivery O2 Flow Rate FiO2 12/29/20 12:45 55 18 162/77 (105) 99 Room Air 12/29/20 05:11 96.1 Laboratory Data Labs 24H Laboratory Tests 2 12/29/20 06:40: Immature Granulocyte % (Auto) 0.3, Neutrophils (%) (Auto) 69.6H, Lymphocytes (%) (Auto) 14.2L, Monocytes (%) (Auto) 12.6H, Eosinophils (%) (Auto) 2.8, Basophils (%) (Auto) 0.5, Neutrophils # (Auto) 4.4, Lymphocytes # (Auto) 0.9L, Monocytes # (Auto) 0.8, Eosinophils # (Auto) 0.2, Basophils # (Auto) 0.0, Nucleated Red Blood Cells % (auto) 0.0, Anion Gap 9, Glomerular Filtration Rate 53.6, Calcium Level 9.1, Total Bilirubin 1.5H, Direct Bilirubin 0.8H, Aspartate Amino Transf (AST/SGOT) 23, Alanine Aminotransferase (ALT/SGPT) 26, Alkaline Phosphatase 177H, Total Creatine Kinase 56, Creatine Kinase MB 1.4, Creatine Kinase MB Relative Index 2.50, Troponin I < 0.02, CW-Typ-A-Type Natriuretic Peptide 5734H, Total Protein 6.5, Albumin 3.3, Albumin/Globulin Ratio 1.0, Thyroid Stimulating Hormone (TSH) 2.660 12/29/20 06:43: Lactic Acid Level 1.1 12/29/20 11:08: POC pH (Misc Panel) 7.436, POC Base Excess (Misc Panel) 0.0, POC Saturated Percent O2 (Misc) 97, POC pO2 (Misc Panel) 85.0, POC pCO2 (Misc Panel) 36.6, POC HCO3 (Misc Panel) 24.6, POC Total CO2 (Misc Panel) 26.0 CBC/BMP Laboratory Tests 12/29/20 06:40 Microbiology Microbiology 12/29/20 Blood Culture, Received Pending 12/29/20 Respiratory Virus Panel (PCR) (ZEINAB) - Final, Complete 12/29/20 Blood Culture, Received Pending Home Medications Scheduled Aspirin (Aspirin EC) 81 Mg Tabec, 81 MG PO Q2D ALTERNATE WITH PLAVIX Cholecalciferol (Vitamin D3) (Vitamin D3) 1,000 Unit Tablet, 1,000 UNITS PO QHS Clopidogrel Bisulfate (Plavix) 75 Mg Tablet, 75 MG PO Q2D ALTERNATE WITH ASPIRIN Furosemide (Furosemide) 20 Mg Tablet, 20 MG PO DAILY Latanoprost (Xalatan) 0.005% 2.5ML Drops, 1 DROP OD QHS Losartan Potassium (Losartan Potassium) 25 Mg Tablet, 25 MG PO DAILY Metoprolol Succinate (Metoprolol Succinate) 50 Mg Tab, 25 MG PO QHS Multivitamins (Thera M Plus Tablet) 1 Tab Tab, 1 TAB PO DAILY [Black Seed Oil] , 1 CAP PO DAILY Allergies Coded Allergies: metronidazole (Verified Allergy, Unknown, 12/29/20) A-FIB/CHADSVASC A-FIB History Current/History of A-Fib/PAF?: No DALLIN CASTANEDA DO Dec 29, 2020 13:29
[2020-12-29 14:09] VITALS: BP 139/63
[2020-12-29 14:15] VITALS: O2SAT 97
[2020-12-29] MEDS: FUROSEMIDE 40MG/4ML VIAL (J1940) IV SCH ×2 (15:40→22:35)
[2020-12-29] MEDS ORDERED: METOPROLOL SUCC *XL* 25MG TAB (TopROL *XL*) PO SCH (21:00)
[2020-12-29] MEDS ORDERED: VITAMIN D 1,000 INTERNATIONAL UNITS TABLET PO SCH (21:00)
[2020-12-29] MEDS ORDERED: LATANOPROST 0.005% OPHTH SOLN 2.5 ML OD SCH (21:00)
[2020-12-29 21:06] VITALS: BP 154/68
[2020-12-29 22:00] VITALS: BP 154/68
[2020-12-30] MEDS: FUROSEMIDE 40MG/4ML VIAL (J1940) IV SCH (06:22)
[2020-12-30 06:28] LABS: HEMATOCRIT 37.5 % (42.0-52.0); HEMOGLOBIN 12.5 g/dl (13.5-17.5); MEAN CORPUSCULAR HEMOGLOBIN 29.1 pg (27.0-33.0); MEAN CORPUSCULAR HGB CONC 33.3 g/dl (32.0-36.5); MEAN CORPUSCULAR VOLUME 87.4 fl (80.0-96.0); PLATELET COUNT, AUTOMATED 152 10^3/uL (150-450); RED BLOOD COUNT 4.29 10^6/uL (4.30-6.10); WHITE BLOOD COUNT 6.3 10^3/uL (4.0-10.0)
[2020-12-30 06:43] LABS: CALCIUM LEVEL 9.4 MG/DL (8.8-10.2); CREATININE FOR GFR 1.4 MG/DL (0.70-1.30); GLOMERULAR FILTRATION RATE 51.4 (>35); MAGNESIUM LEVEL 1.9 MG/DL (1.8-2.4); POTASSIUM SERUM 3.9 MEQ/L (3.5-5.1)
[2020-12-30] MEDS ORDERED: FUROSEMIDE 20 MG TAB PO SCH (09:00)
[2020-12-30] MEDS ORDERED: ENOXAPARIN 40MG/0.4ML SYRINGE (J1650 PER 10MG) SC SCH (09:00)
[2020-12-30] MEDS ORDERED: ASPIRIN 81MG ENTERIC TABLET PO SCH (09:00)
[2020-12-30] MEDS: LOSARTAN 25 MG TAB PO SCH (09:00)
[2020-12-30 09:45] VITALS: O2SAT 95
[2020-12-30] MEDS: MULTIVITAMINS/MINERALS THERAP 1 TAB PO SCH (10:01)
--- NOTE | 2020-12-30 16:06 | DS.PDOC ---
Discharge Summary General Date of Admission Dec 29, 2020 at 11:28 Date of Discharge 12/30/2020 Primary Care Physician: Cory Hernandez M.D. Attending Physician: DALLIN CASTANEDA DO Discharge Summary PROCEDURES PERFORMED DURING STAY: None. ADMITTING DIAGNOSES: 1. Acute exacerbation of congestive heart failure with unknown ejection fraction. 2. Shortness of breath on exertion 3. Hypertension 4. Coronary artery disease status post CABG 5. Chronic kidney disease stage III DISCHARGE DIAGNOSES: 1. Acute exacerbation of congestive heart failure with preserved ejection fraction. 2. Shortness of breath on exertion 3. Hypertension 4. Coronary artery disease status post CABG 5. Chronic kidney disease stage III COMPLICATIONS/CHIEF COMPLAINT: CHF. HISTORY OF PRESENT ILLNESS: Patient is an 85-year-old male who presented to the emergency department on 12/29/2020 with a 2 to 3-week history of worsening shortness of breath on exertion. Patient states over the past 2 to 3 weeks he has noticed worsening shortness of breath especially when he exerts himself. He is not short of breath at rest. Patient states he used to be able to walk a few 1000 feet without any difficulty but he has noticed he is only able to walk a few 100 feet now without having to stop to catch his breath. Patient denies any chest pain at this time. Patient's been unable to sleep the past few days as he is having difficulty breathing especially when laying flat. Patient states he will wake up with shortness of breath occasionally. Patient has been unable to wear his CPAP machine last 2 days due to his shortness of breath. Patient has been prescribed Lasix but has not been taking it recently due to an unknown reason. Patient was admitted for CHF exacerbation. HOSPITAL COURSE: Patient diuresed approximately about 5 L and was feeling much better on the morning of 12/30/2020. Patient was able to walk up and on the hallways and walk to the bathroom without having any shortness of breath. Patient was deemed ready for discharge on 12/30/2020. Patient was discharged in the hospital. I did make sure to advise the patient take his Lasix when he is at home to avoid him getting into the situation again. Patient agrees that he will continue to take his Lasix at home.. DISCHARGE MEDICATIONS: Please see below. ALLERGIES: Please see below. PHYSICAL EXAMINATION ON DISCHARGE: VITAL SIGNS: Please see below. General: Alert and oriented male patient who was sitting in the bed when I walked in. Patient was able to get up get dressed and walk to the bathroom and use bathroom without any difficulty. Patient not appear to be in any acute distress. HEENT: Normocephalic, atraumatic, moist mucous membranes. Neck: No lymphadenopathy or thyromegaly Cardiac: Regular rate and rhythm, no murmurs, normal S1, normal S2 Pulm: Fine bibasilar crackles, upper lung lopez clear to auscultation bilaterally Abd: Nondistended, nontender to palpation, normal bowel sounds Ext: No edema bilateral lower extremities LABORATORY DATA: Please see below. IMAGING: Chest x-ray performed on 12/29/2020 was reported to show asymmetric right basilar airspace/pleural disease obscuring the right lateral hemidiaphragm. PROGNOSIS: Good ACTIVITY: As tolerated. DIET: 2 g sodium DISCHARGE PLAN: Discharge home DISPOSITION: 01 Home, Self-Care. DISCHARGE INSTRUCTIONS: 1. Follow-up with primary care provider within 5 to 7 days at discharge. 2. Continue take your Lasix as prescribed 3. Return to the emergency department if symptoms worsen. ITEMS TO FOLLOWUP ON ON OUTPATIENT: 1. None. DISCHARGE CONDITION: Stable. TIME SPENT ON DISCHARGE: 25 minutes. Vital Signs/I&Os Vital Signs Date Time Temp Pulse Resp B/P (MAP) Pulse Ox O2 Delivery O2 Flow Rate FiO2 12/30/20 09:45 95 Room Air 12/29/20 22:00 97.8 57 18 154/68 (96) I&O- Last 24 Hours up to 6 AM 12/30/20 06:00 Intake Total 520 ml Output Total 4650 ml Balance -4130 ml Laboratory Data Labs 24H Laboratory Tests 2 12/30/20 06:07: Nucleated Red Blood Cells % (auto) 0.0, Anion Gap 8, Glomerular Filtration Rate 51.4, Calcium Level 9.4, Magnesium Level 1.9 CBC/BMP Laboratory Tests 12/30/20 06:07 Microbiology Microbiology 12/29/20 Blood Culture - Preliminary, Resulted No growth after 24 hours . All specim... 12/29/20 Respiratory Virus Panel (PCR) (ZEINAB) - Final, Complete 12/29/20 Blood Culture - Preliminary, Resulted No growth after 24 hours . All specim... Discharge Medications Scheduled Aspirin (Aspirin EC) 81 Mg Tabec, 81 MG PO Q2D, (Reported) ALTERNATE WITH PLAVIX Cholecalciferol (Vitamin D3) (Vitamin D3) 1,000 Unit Tablet, 1,000 UNITS PO QHS, (Reported) Clopidogrel Bisulfate (Plavix) 75 Mg Tablet, 75 MG PO Q2D, (Reported) ALTERNATE WITH ASPIRIN Furosemide (Furosemide) 20 Mg Tablet, 20 MG PO DAILY, (Reported) Latanoprost (Xalatan) 0.005% 2.5ML Drops, 1 DROP OD QHS, (Reported) Losartan Potassium (Losartan Potassium) 25 Mg Tablet, 25 MG PO DAILY, (Reported) Metoprolol Succinate (Metoprolol Succinate) 50 Mg Tab, 25 MG PO QHS, (Reported) Multivitamins (Thera M Plus Tablet) 1 Tab Tab, 1 TAB PO DAILY, (Reported) [Black Seed Oil] , 1 CAP PO DAILY, (Reported) Allergies Coded Allergies: metronidazole (Verified Allergy, Unknown, 12/29/20) DALLIN CASTANEDA DO Dec 30, 2020 16:05
--- NOTE | 2020-12-30 21:15 | ECGEPIP ---
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
== END 2020-12-30 11:43 | disposition home or self-care (01) | DRG 293 ==
LOC: M ED 05:11 → M ED INP 11:28 → ENRESERV 13:35 → M MSPAV 14:14
PROVIDERS: ADMIT Family Medicine; ATTEND Family Medicine
DX: I13.0 Hypertensive heart and chronic kidney disease with heart failure and stage 1 through stage 4 chronic kidney disease, or unspecified chronic kidney disease (principal); I50.9 Heart failure, unspecified; N18.30 Chronic kidney disease, stage 3 unspecified; I25.10 Atherosclerotic heart disease of native coronary artery without angina pectoris; Z79.899 Other long term (current) drug therapy; Z79.82 Long term (current) use of aspirin; Z88.8 Allergy status to other drugs, medicaments and biological substances; Z86.73 Personal history of transient ischemic attack (TIA), and cerebral infarction without residual deficits; Z66 Do not resuscitate

== ENCOUNTER → 2021-01-04 | Outpatient (CLI) | payer MEDICARE, BC ==
[~2021-01-04] MED LIST changes: +BLACK SEED OIL PO; +D31000TA2 PO; +FURO20TA2 PO; +PLAV1TAB2 PO; +XALA0.007 OD
[2021-01-04 11:32] LABS: CHOLESTEROL RISK RATIO 3.956 (<5)
== END ==
LOC: M WUC 09:12
PROVIDERS: ATTEND Psychiatry & Neurology Neurology
DX: E78.49 Other hyperlipidemia (principal); Z86.73 Personal history of transient ischemic attack (TIA), and cerebral infarction without residual deficits